=== PATIENT | female | born 1970 | race Caucasian/White ===

== ENCOUNTER → 2017-02-04 | Outpatient (CLI) | payer OTHER ==
--- NOTE | 2017-02-04 15:34 | Diagnostic Imaging Report ---
EXAMINATION: Right foot. INDICATION: Foot pain. FINDINGS: Three views were obtained. There is no fracture, dislocation, or acute bony abnormality evident. On the oblique view, there is a linear lucency extending longitudinally through the shaft of the first metatarsal. This cannot be identified on the other two projections and consequently is unlikely to be related to a fracture. The soft tissues are unremarkable. There is no radiopaque foreign body identified. IMPRESSION: 1. There is no evidence for an acute bony abnormality. The linear lucency extending longitudinally through the first metatarsal is unlikely to be related to a nondisplaced fracture. 2. If clinical concern regarding an acute abnormality persists, then MRI should be considered for further study. Dictated by: Dictated on workstation # [id number]
== END ==
LOC: RAD 12:06
PROVIDERS: ATTEND Family Medicine
DX: M79.671 Pain in right foot (principal)
CPT/HCPCS: 73630

== ENCOUNTER → 2018-05-14 | Outpatient (CLI) | payer OTHER ==
--- NOTE | 2018-05-14 15:31 | Diagnostic Imaging Report ---
PROCEDURE: MRI right joint lower extremity without contrast. TECHNIQUE: Multiplanar, multisequence MR imaging of the right knee was performed without contrast. COMPARISON: None available. INDICATION: Knee pain after injury playing volleyball. FINDINGS: MENISCI Medial meniscus: Normal. Lateral meniscus: Normal. LIGAMENTS ACL: Intact. PCL: Intact. MCL: The MCL has abnormal increased thickness along its proximal aspect with increased signal. Additionally, there is edema on both sides. These findings are indicative of an intermediate grade sprain with partial-thickness tearing. The distal insertion of the MCL appears intact. LCL: The lateral collateral ligamentous complex is intact. EXTENSOR MECHANISM The extensor mechanism is intact. CARTILAGE Medial compartment: Medial compartment articular cartilage is well preserved without focal high-grade chondromalacia. Lateral compartment: The lateral compartment articular cartilage is preserved without high-grade chondromalacia. Patellofemoral compartment: Full-thickness articular cartilage loss in the central aspect of the patella at the patellar apex. Remainder of the patella and trochlear cartilage is preserved. BONE No fracture, stress fracture or osteonecrosis. SOFT TISSUE No knee effusion or Peck's cyst. IMPRESSION: 1. Intermediate grade sprain/partial-thickness tear of the proximal MCL. Distal MCL fibers are intact. 2. No ACL tear. 3. No meniscal tear. 4. No fracture or bone contusion. Dictated by: Dictated on workstation # [id number]
== END ==
LOC: RAD 13:17
PROVIDERS: ATTEND Nurse Practitioner Family
DX: S83.411A Sprain of medial collateral ligament of right knee, initial encounter (principal); X58.XXXA Exposure to other specified factors, initial encounter; Y93.68 Activity, volleyball (beach) (court)
CPT/HCPCS: 73721

== ENCOUNTER 2020-06-30 13:29 | Emergency (ER) | payer OTHER ==
[~2020-06-30] VITALS: Ht 170 cm; Wt 86.0 kg
[2020-06-30 14:03] LABS: BASOPHILS # (AUTO) 0.1 10^3/uL (0.0-0.1); BASOPHILS % (AUTO) 1 % (0-10); EOSINOPHILS # (AUTO) 0.4 10^3/uL (0.0-0.3); EOSINOPHILS % (AUTO) 4 % (0-10); HEMATOCRIT 34 % (35-52); HEMOGLOBIN 11.3 G/DL (11.5-16.0); LYMPHOCYTES # (AUTO) 2.5 X 10^3 (1.0-4.0); LYMPHOCYTES % (AUTO) 27 % (12-44); MEAN CORPUSCULAR HEMOGLOBIN 19 PG (25-34); MEAN CORPUSCULAR HGB CONC 33 G/DL (32-36); MEAN CORPUSCULAR VOLUME 58 FL (80-99); MEAN PLATELET VOLUME 11.4 FL (7.4-10.4); MONOCYTES # (AUTO) 0.5 X 10^3 (0.0-1.0); MONOCYTES % (AUTO) 6 % (0-12); NEUTROPHILS # (AUTO) 5.8 X 10^3 (1.8-7.8); NEUTROPHILS % (AUTO) 62 % (42-75); PLATELET COUNT 302 10^3/uL (130-400); RED CELL DISTRIBUTION WIDTH 16.9 % (10.0-14.5); WHITE BLOOD COUNT 9.3 10^3/uL (4.3-11.0)
[2020-06-30 14:19] LABS: ALBUMIN 4.3 GM/DL (3.2-4.5); CHLORIDE 105 MMOL/L (98-107); POTASSIUM 3.9 MMOL/L (3.6-5.0); SODIUM 137 MMOL/L (135-145)
[2020-06-30 14:20] LABS: CALCIUM 8.8 MG/DL (8.5-10.1)
--- NOTE | 2020-06-30 14:20 | ED GU-Female ---
General Chief Complaint: Female Reproductive Stated Complaint: VAGINAL BLEEDING Nursing Triage Note: PT AMBULATED IN TO ER ROOM 7 WITH CHIEF COMPLAINT OF VAGINAL BLEEDING ONSET LAST NIGHT. PT STATES SHE HAS BEEN USING 1 PAD AND 1 TAMPON EVERY 1 1/2 HOURS WITH INTERMITTENT CLOTS THAT ARE PALM SIZE. Nursing Sepsis Screen: No Definite Risk Source: patient Exam Limitations: no limitations History of Present Illness Date Seen by Provider: Jun 30, 2020 Time Seen by Provider: 14:18 Initial Comments To ER with reports of vaginal bleeding that began 2-3 days ago. Last night it became heavier to the tune of about 1 pad and tampon every 1.5 hours. Has persisted into today. She does have an IUD that was placed a few years ago by Dr. REDDY. Denies fevers or chills. Timing/Duration: constant Severity/Quality: moderate Radiation: none Activities at Onset: none Prior Genitourinary Problems: none Associated Symptoms: denies symptoms Allergies and Home Medications Home Medications Medroxyprogesterone Acetate 10 Mg Tablet, 10 MG PO DAILY Prescribed by: ELVIN DE ANDA on 06/30/20 5371 Patient Home Medication List Home Medication List Reviewed: Yes Review of Systems Review of Systems Constitutional: see HPI EENTM: see HPI Respiratory: no symptoms reported Cardiovascular: no symptoms reported Genitourinary: see HPI Musculoskeletal: no symptoms reported Skin: no symptoms reported Psychiatric/Neurological: No Symptoms Reported Endocrine: No Symptoms Reported Past Lpfneuw-Xxsshh-Ewzxss Hx Patient Social History Alcohol Use: Occasionally Uses Recreational Drug Use: No Smoking Status: Current Someday Smoker Type Used: Cigars 2nd Hand Smoke Exposure: No Recent Foreign Travel: No Contact w/Someone Who Travel: No Recent Infectious Disease Expo: No Recent Hopitalizations: No Physical Abuse: No Sexual Abuse: No Mistreated: No Fear: No Seasonal Allergies Seasonal Allergies: Yes Past Medical History Surgeries: Yes (DENTAL, LEFT KNEE ARTHOSCOPY) Tonsillectomy Respiratory: No Cardiac: No Neurological: No : No Genitourinary: No Gastrointestinal: No Musculoskeletal: No Endocrine: No HEENT: No Cancer: No Psychosocial: No Integumentary: No Blood Disorders: No Adverse Reaction/Blood Tranf: No Physical Exam Vital Signs Vital Signs - First Documented 06/30/20 13:57 Temp 36.9 Pulse 87 Resp 18 B/P (MAP) 137/88 (104) Pulse Ox 97 O2 Delivery Room Air Capillary Refill : Less Than 3 Seconds Height, Weight, BMI Height: '" Weight: lbs. oz. kg; 29.00 BMI Method: General Appearance: WD/WN, no apparent distress HEENT: PERRL/EOMI, normal ENT inspection Respiratory: no respiratory distress, no accessory muscle use Gastrointestinal: normal bowel sounds, non tender, soft Extremities: normal range of motion Neurologic/Psychiatric: alert, normal mood/affect, oriented x 3 Skin: normal color, warm/dry Progress/Results/Core Measures Suspected Sepsis Recent Fever Within 48 Hours: No Infection Criteria Present: None New/Unexplained Altered Menta: No Sepsis Screen: No Definite Risk SIRS Temperature: Pulse: 87 Respiratory Rate: 18 Laboratory Tests 06/30/20 13:53: White Blood Count 9.3 Blood Pressure 137 /88 Mean: 104 Laboratory Tests 06/30/20 13:53: Creatinine 0.76, INR Comment 1.0, Platelet Count 302, Total Bilirubin 0.5 Results/Orders Lab Results Laboratory Tests Test 06/30/20 13:53 Range/Units White Blood Count 9.3 4.3-11.0 10^3/uL Red Blood Count 5.83 4.35-5.85 10^6/uL Hemoglobin 11.3 L 11.5-16.0 G/DL Hematocrit 34 L 35-52 % Mean Corpuscular Volume 58 L 80-99 FL Mean Corpuscular Hemoglobin 19 L 25-34 PG Mean Corpuscular Hemoglobin Concent 33 32-36 G/DL Red Cell Distribution Width 16.9 H 10.0-14.5 % Platelet Count 302 130-400 10^3/uL Mean Platelet Volume 11.4 H 7.4-10.4 FL Neutrophils (%) (Auto) 62 42-75 % Lymphocytes (%) (Auto) 27 12-44 % Monocytes (%) (Auto) 6 0-12 % Eosinophils (%) (Auto) 4 0-10 % Basophils (%) (Auto) 1 0-10 % Neutrophils # (Auto) 5.8 1.8-7.8 X 10^3 Lymphocytes # (Auto) 2.5 1.0-4.0 X 10^3 Monocytes # (Auto) 0.5 0.0-1.0 X 10^3 Eosinophils # (Auto) 0.4 H 0.0-0.3 10^3/uL Basophils # (Auto) 0.1 0.0-0.1 10^3/uL Prothrombin Time 13.3 12.2-14.7 SEC INR Comment 1.0 0.8-1.4 Sodium Level 137 135-145 MMOL/L Potassium Level 3.9 3.6-5.0 MMOL/L Chloride Level 105 98-107 MMOL/L Carbon Dioxide Level 22 21-32 MMOL/L Anion Gap 10 5-14 MMOL/L Blood Urea Nitrogen 17 7-18 MG/DL Creatinine 0.76 0.60-1.30 MG/DL Estimat Glomerular Filtration Rate > 60 BUN/Creatinine Ratio 22 Glucose Level 116 H 70-105 MG/DL Calcium Level 8.8 8.5-10.1 MG/DL Corrected Calcium 8.6 8.5-10.1 MG/DL Total Bilirubin 0.5 0.1-1.0 MG/DL Aspartate Amino Transf (AST/SGOT) 17 5-34 U/L Alanine Aminotransferase (ALT/SGPT) 21 0-55 U/L Alkaline Phosphatase 59 40-136 U/L Total Protein 7.2 6.4-8.2 GM/DL Albumin 4.3 3.2-4.5 GM/DL Serum Test, Qualitative NEGATIVE NEGATIVE My Orders Orders - ELVIN DE ANDA APRN Hcg,Qualitative Serum (06/30/20 13:45) Cbc With Automated Diff (06/30/20 13:45) Comprehensive Metabolic Panel (06/30/20 13:45) Protime With Inr (06/30/20 13:45) Us Non Ob Pelvis Comp/Transvag (06/30/20 13:45) Vital Signs/I&O 06/30/20 13:57 Temp 36.9 Pulse 87 Resp 18 B/P (MAP) 137/88 (104) Pulse Ox 97 O2 Delivery Room Air Capillary Refill : Less Than 3 Seconds Blood Pressure Mean: 104 Diagnostic Imaging Diagonstic Imaging: Xray, Ultrasound Comments NAME: SORAYA TAYLORLEE Marcela SHARMA REC#: [id number] PT STATUS: REG ER : 1970 PHYSICIAN: ELVIN DE ANDA APRN ADMIT DATE: 06/30/20/ER Signed Date of Exam:06/30/20 US NON OB PELVIS COMP/TRANSVAG PROCEDURE: US Non-ob pelvis comp/trans. TECHNIQUE: Multiple realtime grayscale images were obtained of the pelvis in various projections endovaginally. Transabdominal imaging was also performed. INDICATION: Vaginal bleeding. FINDINGS: Uterus is enlarged measuring 12.5 x 8.2 x 11.5 cm. There are multiple uterine fibroids present. Large midline fibroid measures 6.8 x 6.0 x 4.0 cm. Fibroid in the left uterus measures 5.3 x 4.8 x 4.2 cm. Endometrium is 11 mm in thickness. Right ovary measures 3.1 x 1.6 x 2.0 cm. Left ovary measures 3.8 x 2.5 x 2.0 cm. Small cyst in the left ovary is noted measuring approximately 2 cm in size. No free fluid is identified. IMPRESSION: 1. Enlarged fibroid uterus. 2. 2 cm left ovarian cyst. Dictated by: Dictated on workstation # [id number] Dict: 06/30/20 1547 Trans: 06/30/20 1554 [id number] Interpreted by: ALANIS HADDAD MD Electronically signed by: ALANIS HADDAD MD 06/30/20 1554 Departure Impression Primary Impression: Uterine fibroid Additional Impression: Vaginal bleeding Disposition: HOME, SELF-CARE Condition: Stable Departure-Patient Inst. Decision time for Depature: 15:54 Referrals: EMERALD REDDY JACQUELINE S DO (PCP/Family) Primary Care Physician Patient Instructions: Uterine Fibroids Add. Discharge Instructions: 1. Follow-up with Dr. REDDY. Call Friday to make an appointment to be seen in the meantime take the medroxyprogesterone as directed. This will slow the bleeding. Return to ER for any worsening or other concerns. All discharge instructions reviewed with patient and/or family. Voiced understanding. Scripts Medroxyprogesterone Acetate (Medroxyprogesterone Acetate) 10 Mg Tablet 10 MG PO DAILY, #14 TAB Prov: ELVIN DE ANDA APRN 06/30/20 Copy Copies To 1: EMERALD REDDY PETER J APRN Jun 30, 2020 14:20
[2020-06-30 14:21] LABS: GLUCOSE 116 MG/DL (70-105)
[2020-06-30 14:22] LABS: PROTHROMBIN TIME PATIENT 13.3 SEC (12.2-14.7); TOTAL PROTEIN 7.2 GM/DL (6.4-8.2)
[2020-06-30 14:23] LABS: CARBON DIOXIDE 22 MMOL/L (21-32)
[2020-06-30 14:24] LABS: BILIRUBIN,TOTAL 0.5 MG/DL (0.1-1.0)
[2020-06-30 14:25] LABS: ALKALINE PHOSPHATASE 59 U/L (40-136); CREATININE SERUM 0.76 MG/DL (0.60-1.30); GFR ESTIMATED > 60
[2020-06-30 14:26] LABS: BUN/CREATININE RATIO 22
[2020-06-30 14:28] LABS: ALANINE AMINOTRANSFERASE 21 U/L (0-55)
--- NOTE | 2020-06-30 15:09 | NUR ---
pt back in room from US, VS assessed and stable, pt denies any needs or c/o at this time, pt shows no s/s of distress, will continue to monitor
--- NOTE | 2020-06-30 15:52 | Diagnostic Imaging Report ---
PROCEDURE: US Non-ob pelvis comp/trans. TECHNIQUE: Multiple realtime grayscale images were obtained of the pelvis in various projections endovaginally. Transabdominal imaging was also performed. INDICATION: Vaginal bleeding. FINDINGS: Uterus is enlarged measuring 12.5 x 8.2 x 11.5 cm. There are multiple uterine fibroids present. Large midline fibroid measures 6.8 x 6.0 x 4.0 cm. Fibroid in the left uterus measures 5.3 x 4.8 x 4.2 cm. Endometrium is 11 mm in thickness. Right ovary measures 3.1 x 1.6 x 2.0 cm. Left ovary measures 3.8 x 2.5 x 2.0 cm. Small cyst in the left ovary is noted measuring approximately 2 cm in size. No free fluid is identified. IMPRESSION: 1. Enlarged fibroid uterus. 2. 2 cm left ovarian cyst. Dictated by: Dictated on workstation # [id number]
[2020-06-30] MEDS ORDERED: MEDR10TA9 PO (15:55)
[2020-06-30] MEDS ORDERED: medroxyPROGESTERone 10 MG (PROVERA) TAB PO ONE (16:00)
[2020-06-30 16:09] VITALS: BP 128/72
== END 2020-06-30 16:09 | disposition home or self-care (01) ==
LOC: EDUNIT# 13:29 → ER 13:30
DX: D25.9 Leiomyoma of uterus, unspecified (principal); F17.290 Nicotine dependence, other tobacco product, uncomplicated
CPT/HCPCS: 36415; 76830; 76856; 80053; 84703; 85025; 85610

== ENCOUNTER → 2020-09-25 | Outpatient (CLI) | payer OTHER ==
[~2020-09-25] MED LIST: MEDR10TA9 PO
--- NOTE | 2020-09-25 20:23 | Diagnostic Imaging Report ---
PROCEDURE: Pelvic complete, transabdominal and transvaginal sonogram. Limited pelvic doppler. TECHNIQUE: Multiple real-time grayscale images were obtained of the pelvis in various projections transabdominally and transvaginally. Limited pelvic duplex images were obtained. HISTORY: Uterine fibroids. COMPARISON: Pelvic ultrasound 06/22/2020. FINDINGS: Uterus: The uterus is anteverted and measures 11.6 x 8.3 x 10.0. cm. There is a 6.2 x 4.2 x 3.7 cm uterine fibroid along the left uterus. There is a 5.5 x 5.4 x 4.5 cm uterine fibroid along the midline. Endometrium: The endometrium is obscured by the uterine fibroids. Adnexa: The ovaries are not well visualized secondary to overlying bowel gas. Other: There is no free fluid within the pelvis. IMPRESSION: 1. A 6.2 cm uterine fibroid, mildly increased in size from prior exam. 2. A 5.5 cm uterine fibroid which is decreased in size from prior exam. Dictated by: Dictated on workstation # [id number]
== END ==
LOC: RAD 15:00
PROVIDERS: ATTEND Obstetrics & Gynecology
DX: D25.9 Leiomyoma of uterus, unspecified (principal)
CPT/HCPCS: 76830; 76856

== ENCOUNTER → 2020-10-02 | Outpatient (CLI) | payer OTHER ==
--- NOTE | 2020-10-02 18:24 | Diagnostic Imaging Report ---
EXAM: Left foot radiograph EXAM DATE: 10/02/2020 COMPARISON: None. HISTORY: Palpable abnormality dorsal surface of the left foot. TECHNIQUE: 3 views of the left foot. FINDINGS: No acute fracture, dislocation, or destructive osseous process. There are mild degenerative changes of the tarsometatarsal joints. Joint spaces are preserved. Soft tissues are normal. No focal abnormality along the 4th metatarsal is seen on this radiograph to correspond to the patient's palpable abnormality. IMPRESSION: No acute osseous abnormality of the left foot. No focal abnormality corresponding to the patient's palpable symptoms. Dictated by: Dictated on workstation # [id number]
== END ==
LOC: RAD 16:54
PROVIDERS: ATTEND Family Medicine
DX: M79.672 Pain in left foot (principal); M79.89 Other specified soft tissue disorders; Z20.828 Contact with and (suspected) exposure to other viral communicable diseases
CPT/HCPCS: 73630

== ENCOUNTER 2020-10-26 05:33 | Outpatient (RCR) | payer OTHER ==
[~2020-10-26] VITALS: Ht 170.2 cm; Wt 84.5 kg
[~2020-10-26 05:33] MED LIST changes: +CETI10TA49 PO; +ELAG200T PO
== END 2020-10-26 09:15 | disposition home or self-care (01) ==
LOC: PREOP 05:33
PROVIDERS: ATTEND Obstetrics & Gynecology
DX: Z01.812 Encounter for preprocedural laboratory examination (principal); D25.9 Leiomyoma of uterus, unspecified; Z20.828 Contact with and (suspected) exposure to other viral communicable diseases
CPT/HCPCS: 87635

== ENCOUNTER 2020-10-30 06:04 | Day surgery (SDC) | payer OTHER ==
[~2020-10-30] VITALS: Ht 170.2 cm; Wt 84.5 kg
[2020-10-30] VITALS (20 sets, daily range): BP systolic 108–133; BP diastolic 56–84
[2020-10-30] MEDS ORDERED: ONDANSETRON 4 MG/2 ML (SDV) Z0FRAN ONE (06:45)
[2020-10-30] MEDS ORDERED: proPOfol 200 MG/20 ML (DIPRIVAN) VIAL IV ONE (06:45)
[2020-10-30] MEDS ORDERED: SEVOFLURANE (ULTANE) 15 ML INHAL SOLN ONE ×2 (06:45→09:38)
[2020-10-30] MEDS ORDERED: ROCURONIUM 10 MG/ML 5 ML SYRINGE IV ONE (06:45)
[2020-10-30] MEDS ORDERED: MIDAZOLAM 2 MG/2 ML (VERSED) VIAL ONE (06:46)
[2020-10-30] MEDS ORDERED: fentaNYL INJECTION 100 MCG/2 ML AMP ONE (06:46)
--- NOTE | 2020-10-30 06:56 | Progress Note-Pre Operative ---
Pre-Operative Progress Note H&P Reviewed The H&P was reviewed, patient examined and no changes noted. Date Seen by Provider: Oct 30, 2020 Time Seen by Provider: 06:55 Date H&P Reviewed: Oct 30, 2020 Time H&P Reviewed: 06:55 Pre-Operative Diagnosis: Fibroid uterus, AUB, Pelvic pressure EMERALD REDDY DO Oct 30, 2020 06:56
[2020-10-30] MEDS ORDERED: LIDOCAINE/EPI 1%-1:100,000 (XYLOCAINE) 50 ML ONE (06:58)
[2020-10-30] MEDS ORDERED: DOCUSATE SODIUM 100 MG (COLACE) CAP PO PRN (07:00)
[2020-10-30] MEDS ORDERED: CHLORASEPTIC LOZENGE MM PRN (07:00)
[2020-10-30] MEDS ORDERED: SIMETHICONE 80 MG (MYLICON) CHEW PO PRN (07:00)
[2020-10-30] MEDS ORDERED: ZOLPIDEM 5 MG (AMBIEN) TAB PO PRN (07:00)
[2020-10-30] MEDS ORDERED: ONDANSETRON 4 MG/2 ML (SDV) Z0FRAN IV PRN (07:00)
[2020-10-30] MEDS ORDERED: KETOROLAC 30 MG/ML VIAL IV PRN (07:00)
[2020-10-30] MEDS ORDERED: ANTACID SUSP 30 ML UDC (MYLANTA) PO PRN (07:00)
[2020-10-30] MEDS ORDERED: ceFAZolin 2 GM IV Premixed 50 ML ONE (07:01)
[2020-10-30] MEDS ORDERED: metroNIDAZOLE 500MG/100ML IVPB 100 ML ONE (07:01)
--- NOTE | 2020-10-30 07:06 | Discharge Inst-Women's Service ---
Discharge Inst-Women's Serv Depart Medication/Instructions New, Converted or Re-Newed RX: RX on Chart Final Diagnosis PO RATLH with salpingectomy Problems Reviewed?: Yes Consults/Follow Up Additional Follow Up: Yes Orders/Referrals Dr. Jeter in 7-10 days and in 8 weeks Activity Activity: Activity as Tolerated Driving Instructions: No Driving for 1 Week NO SMOKING: NO SMOKING Nothing Inside Vagina: No Douching, No Ryan, No Tampons Diet Discharge Diet: No Restrictions Symptoms to Report to : Bleeding Excessive, Pain Increased, Fever Over 101 Degrees F, Vaginal Bleeding Increase, Questions/Concerns For Any Problems or Questions: Contact Your Physician Skin/Wound Care Infection Signs and Symptoms: Increased Redness, Foul Odor of Wound, Increased Drainage, Skin Itchy or Has a Rash, Increased Swelling, Temperature Above 101 F Operative Area Clean and Dry: Keep Incision Clean/Dry Stitches/Andres/Dermabond: Dermabond, Care of Stitches Bathing Instructions: EMERALD Young DO Oct 30, 2020 07:06
[2020-10-30 07:08] LABS: HEMOGLOBIN 11.2 g/dL (11.5-16.0); MEAN PLATELET VOLUME 11.2 fL (9.0-12.2)
[2020-10-30] MEDS ORDERED: HYDR-34 PO (07:08)
[2020-10-30] MEDS ORDERED: SIME80TA16 PO (07:08)
[2020-10-30] MEDS ORDERED: NAPR250T6 PO (07:08)
[2020-10-30] MEDS ORDERED: DCS100C PO (07:08)
[2020-10-30 07:10] LABS: BASOPHILS # (AUTO) 0.1 10^3/uL (0.0-0.1); BASOPHILS % (AUTO) 1 % (0-10); EOSINOPHILS # (AUTO) 0.3 10^3/uL (0.0-0.3); EOSINOPHILS % (AUTO) 4 % (0-10); HEMATOCRIT 36 % (35-52); LYMPHOCYTES # (AUTO) 1.8 10^3/uL (1.0-4.0); LYMPHOCYTES % (AUTO) 29 % (12-44); MEAN CORPUSCULAR HEMOGLOBIN 19 pg (25-34); MEAN CORPUSCULAR HGB CONC 31 g/dL (32-36); MEAN CORPUSCULAR VOLUME 61 fL (80-99); MONOCYTES # (AUTO) 0.4 10^3/uL (0.0-1.0); MONOCYTES % (AUTO) 7 % (0-12); NEUTROPHILS # (AUTO) 3.5 10^3/uL (1.8-7.8); NEUTROPHILS % (AUTO) 58 % (42-75); PLATELET COUNT 237 10^3/uL (130-400)
[2020-10-30] MEDS ORDERED: ceFAZolin 2 GM IV Premixed 50 ML IV ONE (07:30)
[2020-10-30] MEDS ORDERED: LACTATED RINGERS 1,000 ML IV PRN (07:30)
[2020-10-30] MEDS ORDERED: metroNIDAZOLE 500MG/100ML IVPB 100 ML IV ONE (07:30)
[2020-10-30] MEDS ORDERED: HYDROmorphone 2 MG/ML VIAL (DILAUDID) ONE ×2 (07:51→09:54)
[2020-10-30] MEDS: LACTATED RINGERS 1,000 ML IV SCH ×2 (08:15→11:25)
[2020-10-30] MEDS ORDERED: GLYCOPYRROLATE 0.2 MG/ML (ROBINUL) 2 ML VIAL ONE (08:24)
[2020-10-30] MEDS ORDERED: NEOSTIGMINE 3 MG/3 ML VIAL ONE (08:24)
[2020-10-30] MEDS ORDERED: NAPROXEN 250 MG (NAPROSYN) TABLET PO SCH (09:00)
[2020-10-30] MEDS ORDERED: ONDANSETRON 4 MG/2 ML (SDV) Z0FRAN IVP PRN (09:45)
[2020-10-30] MEDS ORDERED: HYDROmorphone 2 MG/ML VIAL (DILAUDID) IV ONE (09:45)
--- NOTE | 2020-10-30 10:30 | NUR ---
CECILE CLAUDIA admitted to room 3306, with an admitting diagnosis of RATLH WITH BS, on 10/30/20 from [facility] via , accompanied by .CECILE TAYLOR introduced to surroundings, call light, bed controls, phone, TV, temperature control, lights, meal times, smoking policy, visitor policy, side rail policy, bathrooms and showers. Patient Rights given to patient in the handbook.CECILE TAYLOR verbalizes understanding that [facility] is not responsible for the loss or damage to any personal effects or valuables that are kept in the patients posession during their hospitalization. The following Patient Care Plans were discussed with the : Discharge Planning, ,, and . CECILE TAYLOR verbalizes understanding of Interdisciplinary Patient Education. Patient and/or family were informed about the Rapid Response Team and its purpose.
--- NOTE | 2020-10-30 10:35 | NUR ---
INITIAL ASSESSMENT COMPLETED, SEE INTERVENTIONS FOR DETAILED ASSESSMENTS.
[2020-10-30] MEDS ORDERED: HYDROcodone/APAP 7.5 MG/325 MG (LORTAB, LORCET PLUS) TABLET PO ONE (11:27)
[2020-10-30] MEDS: HYDROcodone/APAP 7.5 MG/325 MG (LORTAB, LORCET PLUS) TABLET PO PRN ×3 (11:34→14:00)
--- NOTE | 2020-10-30 11:36 | NUR ---
pt c/o pain, requesting pain meds, 1 lorcet given po for pain due to pt still being drowsy from surgery. Vss, o2 on by nc at 2 liters, rn will monitor closely.
--- NOTE | 2020-10-30 13:20 | NUR ---
RENDON CATHETER REMOVED, PERICARE, PT REPORTING NEED TO HAVE BM UP TO BR, RN AT SIDE.
--- NOTE | 2020-10-30 14:06 | NUR ---
PT RESTING BACK IN BED, VISITING WITH RN REQUESTS MEDS FOR PAIN AND GAS. MEDS GIVEN, PT REQUESTS TO HAVE O2 PLACED BACK ON, REPORTS "I CANT TAKE DEEP BREATHS", VS TAKEN, SPO2 98%. VSS. WILL MONITOR.
--- NOTE | 2020-10-30 19:15 | NUR ---
up to void. 200cc. no difficulty. pt states she wants to stay the night and go home in the am. Dr Jeter notified
--- NOTE | 2020-10-30 21:12 | OPERATIVE REPORT ---
DATE OF SERVICE: PREOPERATIVE DIAGNOSES: 1. A 50-year-old female with multiple fibroid uterus. 2. Abnormal uterine bleeding. 3. Pelvic pressure and discomfort. POSTOPERATIVE DIAGNOSES: 1. A 50-year-old female with multiple fibroid uterus. 2. Abnormal uterine bleeding. 3. Pelvic pressure and discomfort. PROCEDURE: Robotic-assisted total laparoscopic hysterectomy with bilateral salpingectomy with total weight of 450 grams. SURGEON: Federico Jeter DO CASINO CASHIER: Marnie Jenkins DNP, who was necessary for manipulation and retraction throughout the procedure. ANESTHESIA: General endotracheal. ESTIMATED BLOOD LOSS: Minimal. URINE OUTPUT: 75 mL clear at the end of the procedure. FLUIDS: 1500 mL lactated Ringer's solution. FINDINGS: A bulky and enlarged uterus with multiple subserosal fibroids evident on gross inspection as well as large fibroid involving the broad ligament and distorting the broad ligament on the left side. SPECIMEN SENT: Uterus, cervix, bilateral fallopian tubes. INDICATIONS FOR PROCEDURE: This 50-year-old female was a consultation from Dr. Burns for multiple fibroid uterus. She had been evaluated in the past and was started on a GnRH antagonist to help minimize the size of the fibroids. After approximately 3 to 6 months of decreased bleeding, spotting and repeat ultrasound showing a small decrease in the size of the fibroids, we decided to proceed with removing the uterus as this is a definitive therapy for these fibroids. Risks of the procedure were discussed with the patient in detail including risk of bleeding, infection, damage to surrounding structures including, but not limited to bowel, bladder, ureter, kidneys, possible need for reoperation, risk from anesthesia, possible need for blood transfusion and even . Everything was discussed with the patient in detail, consent was obtained in the preoperative area with her present. The patient was taken to the operating room. Once in the operating room, general anesthesia was found to be adequate, placed in dorsal lithotomy position, prepped and draped in normal sterile fashion where a timeout was performed. A Lozano catheter was placed using sterile technique. A weighted speculum inserted to the patient's vagina. Right angle retractor was used to visualize the cervix, which was grasped at 12 o'clock position using a long Allis clamp. I then placed an 0 Vicryl suture through the anterior lip of the cervix and removed the Allis clamp. The suture was then used as my retraction point on the cervix. I then gently sounded the uterine cavity, depth was found to be 14 cm. I selected a 12 cm Lauryn uterine manipulator tip and a 4 cm colpotomy ring. I advanced the manipulator tip into the uterus deploying the balloon and the colpotomy ring around the vaginal fornix, after which I removed all the other instruments from the patient's vagina. I was able to appreciate bimanual manipulation on examination. I then performed a change of gloves and took my attention to the abdomen at approximately 2 cm superiorly to the umbilicus. I infiltrated this area using 0.25% Marcaine to make an 8 mm incision with a knife and directed Veress needle to the incision until intraperitoneal placement was confirmed using saline drop test. I then proceeded with insufflation using CO2 gas and opening pressure of 1 mmHg was noted. I proceeded to max pressure of 15 mmHg, at which point I removed the Veress needle and introduced an 8 mm blunt laparoscopic da Wendy camera trocar. Once this was in place, I was able to confirm intraperitoneal placement using the da Wendy laparoscope. There was no evidence upon my entry using the laparoscope to identify the peritoneal cavity. A brief scan of the upper abdominal anatomy appears to be grossly normal. I then had the patient placed in steep Trendelenburg and placed two lateral trocars. These were both 8 mm trocars similar to the supraumbilical trocar. They were approximately 10 cm lateral to my suprapubic trocar. The skin was infiltrated using 0.25% Marcaine. Incisions were made with a knife and the trocars were both placed under direct visualization of laparoscope. Once both these trocars were placed, I have adequate access to proceed with the case robotically. I bring in the da Wendy robot and docked in appropriate fashion, placing the da Wendy vessel sealer in the left hand and monopolar jose a in the right hand. I performed the following dissection bilaterally starting at the uteroovarian ligament, I bipolar cauterized and transected using the vessel sealer. I then created a window in the mesosalpinx and took this laterally amputating the fallopian tube from its surrounding blood supply. I then was able to identify the round ligament bilaterally, which I bipolar cauterized and transected using the vessel sealer. I then opened up the broad ligament anteriorly and posteriorly around subserosal fibroids and dissected them away from the lateral pelvic sidewall. I took my peritoneal dissection plane down to the anterior vaginal fornix, so I was able to identify the anterior vaginal cuff of the LAURYN uterine manipulator. In a similar fashion, I took a posterior leaflet reflection around to the posterior vaginal cuff. This allowed me to skeletonize the uterine vessels laterally, which I then bipolar cauterized and transected using the vessel sealer. I then created a colpotomy at 6 o'clock position using the monopolar jose a and took this circumferentially around the vaginal fornix amputating the cervix away from the vagina. The entire specimen was then removed intact through the vagina. I then proceeded with closing the lateral vaginal apices of the vaginal cuff using 2-0 Vicryl suture in a [id number] fashion colposuspending the uterosacral ligaments. I then closed the remainder of the vaginal cuff using 2-0 V-Loc in a running fashion, after which there was no active bleeding noted from any of my dissection planes. I then undocked the da Wendy robot and proceeded with the remainder of the case laparoscopically. I then copiously irrigated the pelvis using normal saline. There was no active bleeding noted from any of my dissection planes. I placed FloSeal hemostatic agent over all my planes of dissection. I had the patient taken out of steep Trendelenburg where I removed the lateral trocars under direct visualization and laparoscope. The supraumbilical trocar was left in place to release insufflation and to introduce 10 mL of 0.25% Marcaine into the peritoneal cavity for postoperative pain management. I then removed this trocar as well. The skin reapproximated using 4-0 Monocryl in interrupted subcuticular stitches. Dermabond was applied to the incisions and Band-Aids were placed over the incisions as well. Upon further inspection of the vagina, there was a very small mucosal tear of the mucocutaneous junction of the vagina that was repaired using 3-0 Vicryl suture in a [id number] fashion, after which it was noted to be hemostatic. Lozano catheter was left in place. All other instruments were removed. Lap and sponge counts were correct at the end of procedure. Instrument counts correct as well. Two grams of Ancef, 500 mg of Flagyl was given probably for infection prophylaxis. Job ID: [id number] DocumentID: [id number] Dictated Date: 10/30/2020 10:45:37 Mechanical Technologist Date: 10/30/2020 21:10:50 Dictated By: FEDERICO JETER DO
[2020-10-31] MEDS: HYDROcodone/APAP 7.5 MG/325 MG (LORTAB, LORCET PLUS) TABLET PO PRN ×2 (02:19→06:17)
[2020-10-31 02:52] VITALS: BP 115/57
--- NOTE | 2020-10-31 07:58 | NUR ---
DR. REDDY AT PT'S BEDSIDE.
[2020-10-31 08:03] VITALS: BP 109/55
--- NOTE | 2020-10-31 09:17 | NUR ---
DISCHARGE PAPERS PROVIDED AND REVIEWED WITH PT, PT VERBALIZES UNDERSTANDING. QUESTIONS ANSWERED. PAPER SIGNED. FOLLOW UP APPOINTMENT CARDS AND PRESCRIPTIONS ALSO PROVIDED AT THIS TIME AND PLACED INTO DISCHARGE FOLDER.
--- NOTE | 2020-10-31 09:45 | NUR ---
PT DISCHARGED FROM [facility]-306 TO PERSONAL AUTO VIA W/C IN STABLE CONDITION ACC BY Sven HANLEY, PCT.
--- NOTE | 2020-10-31 14:38 | Anesthesia-General Post-Op ---
General Patient Condition Mental Status/LOC: Same as Preop Cardiovascular: Satisfactory Nausea/Vomiting: Absent Respiratory: Satisfactory Pain: Controlled Complications: Absent Post Op Complications Complications None Follow Up Care/Instructions Patient Instructions None needed. Anesthesia/Patient Condition Patient Condition Patient is already discharged to home but she was doing well prior to discharge per nursing staff; no complaints, stable vital signs, no apparent adverse anesthesia problems. MIRNA MEJIAS DO Oct 31, 2020 14:38
== END 2020-10-31 09:45 | disposition home or self-care (01) ==
LOC: SDC 06:04 → WS 10:30 → SDC 10-31 09:45
PROVIDERS: ATTEND Obstetrics & Gynecology
DX: D25.1 Intramural leiomyoma of uterus (principal); D25.0 Submucous leiomyoma of uterus; D25.2 Subserosal leiomyoma of uterus; N93.9 Abnormal uterine and vaginal bleeding, unspecified; N80.0 Endometriosis of uterus; D26.1 Other benign neoplasm of corpus uteri; N83.8 Other noninflammatory disorders of ovary, fallopian tube and broad ligament; J45.909 Unspecified asthma, uncomplicated; G47.33 Obstructive sleep apnea (adult) (pediatric); E66.9 Obesity, unspecified; Z68.29 Body mass index [BMI] 29.0-29.9, adult; Z79.899 Other long term (current) drug therapy; Z88.5 Allergy status to narcotic agent
CPT/HCPCS: 36415; 84703; 85025; 86850; 86900; 86901; 87081

== ENCOUNTER → 2021-01-02 | Outpatient (CLI) | payer OTHER ==
[~2021-01-02] MED LIST changes: +DCS100C PO; +HYDR-34 PO; +NAPR-1088 PO; +SIME80TA16 PO
--- NOTE | 2021-01-02 16:18 | Diagnostic Imaging Report ---
INDICATION: Routine screening. COMPARISON: 06/07/2019 and 12/19/2014. TECHNIQUE: 2D and 3D bilateral screening mammography was performed with CAD. FINDINGS: Both breasts are heterogeneously dense, limiting the sensitivity of mammography. Calcifications in both breasts appear to be fairly stable. No dominant mass is identified. The axillae are unremarkable. IMPRESSION: No mammographic features suspicious for malignancy are identified. ACR BI-RADS Category 2: Benign findings. Result letter will be mailed to the patient. Note: At least 10% of breast cancer is not imaged by mammography. Dictated by: Dictated on workstation # [id number]
== END ==
LOC: RAD 13:40
PROVIDERS: ATTEND Family Medicine
DX: Z12.31 Encounter for screening mammogram for malignant neoplasm of breast (principal)
CPT/HCPCS: 77063; 77067

== ENCOUNTER 2021-05-23 12:23 | Outpatient (CLI) | payer OTHER ==
[2021-05-23 12:35] VITALS: BP 115/85
[2021-05-23] MEDS ORDERED: NS IV 1000 ML 1,000 ML IV ONE (12:45)
[2021-05-23 13:19] LABS: HEMOGLOBIN 11.6 g/dL (11.5-16.0); MONOCYTES % (AUTO) 6 % (0-12)
[2021-05-23 13:20] LABS: BASOPHILS % (AUTO) 0 % (0-10); EOSINOPHILS % (AUTO) 0 % (0-10); HEMATOCRIT 37 % (35-52); LYMPHOCYTES # (AUTO) 1.2 10^3/uL (1.0-4.0); LYMPHOCYTES % (AUTO) 30 % (12-44); MEAN CORPUSCULAR HEMOGLOBIN 19 pg (25-34); MEAN CORPUSCULAR HGB CONC 31 g/dL (32-36); MEAN CORPUSCULAR VOLUME 60 fL (80-99); MONOCYTES # (AUTO) 0.2 10^3/uL (0.0-1.0); NEUTROPHILS # (AUTO) 2.6 10^3/uL (1.8-7.8); NEUTROPHILS % (AUTO) 64 % (42-75); PLATELET COUNT 135 10^3/uL (130-400); WHITE BLOOD COUNT 4.1 10^3/uL (4.3-11.0)
[2021-05-23 13:42] LABS: ALBUMIN 3.4 GM/DL (3.2-4.5); BILIRUBIN,TOTAL 0.6 MG/DL (0.1-1.0); CALCIUM 7.7 MG/DL (8.5-10.1); CREATININE SERUM 0.69 MG/DL (0.60-1.30); POTASSIUM 3.3 MMOL/L (3.6-5.0); TOTAL PROTEIN 6.1 GM/DL (6.4-8.2)
== END 2021-05-23 14:10 | disposition home or self-care (01) ==
LOC: SDC 12:23
PROVIDERS: ATTEND Family Medicine
DX: U07.1 COVID-19 (principal); E86.0 Dehydration
CPT/HCPCS: 36415; 80053; 85025; 96360

== ENCOUNTER → 2021-09-12 | Outpatient (CLI) | payer OTHER ==
[~2021-09-12] MED LIST changes: -DCS100C PO; +DOCU-239 PO
--- NOTE | 2021-09-12 16:30 | Diagnostic Imaging Report ---
INDICATION: Left knee pain. TECHNIQUE: AP, oblique, and lateral views of the left knee are obtained. FINDINGS: No fracture or acute bony abnormality is seen. Joint spaces are unremarkable. There is no overt joint effusion. IMPRESSION: Negative left knee. Dictated by: Dictated on workstation # [id number]
== END ==
LOC: RAD 15:33
PROVIDERS: ATTEND Family Medicine
DX: M25.562 Pain in left knee (principal)
CPT/HCPCS: 73562

== ENCOUNTER 2021-12-03 20:37 | Emergency (ER) | payer OTHER ==
[~2021-12-03] VITALS: Ht 170 cm; Wt 84.0 kg
[2021-12-03 20:53] VITALS: BP 134/88
--- NOTE | 2021-12-03 21:20 | ED EENT ---
History of Present Illness General Chief Complaint: Eye Problems Stated Complaint: FLASHES OF LIGHT R EYE Source: patient, spouse Exam Limitations: no limitations History of Present Illness Date Seen by Provider: Dec 03, 2021 Time Seen by Provider: 21:04 Initial Comments Patient to ER by private conveyance with chief complaint of an hour ago she is was at home not doing anything particular and started having some flashes of light in her peripheral lateral and medial vision of her right eye. When it did not go away she decided to come in. She is to follow-up with Dr. Solo for her optometry needs and he warned her about coming to the ER for flashes of light and possibility of a retinal detachment. She is had no trauma. She denies a history of hypertension, peripheral arterial disease, coronary disease, hyperlipidemia, diabetes or previous eye problems outside of needing corrective lenses. She is wearing contacts. She is not having any fevers chills nausea vomiting diarrhea. Allergies and Home Medications Allergies Coded Allergies: ibuprofen (Verified Allergy, Severe, Anaphylaxis, pt takes Naproxen at home, 10/30/20) "I stop breathing" Patient Home Medication List Home Medication List Reviewed: Yes Cetirizine HCl (Zyrtec) 10 Mg Tablet, 10 MG PO DAILY, (Reported) Entered as Reported by: STERLING RENAE on 10/23/20 1317 Docusate Sodium (Dok) 100 Mg Capsule, 100 MG PO BID PRN for CONSTIPATION-1ST LINE Prescribed by: EMERALD REDDY on 10/30/20 0708 Hydrocodone Bit/Acetaminophen (HYDROcodone/APAP 7.5/325 TAB) 1 Ea Tablet, 2 EA PO Q6H PRN for Pain-See Instructions Prescribed by: EMERALD REDDY on 10/30/20 0708 Naproxen (Naproxen) 250 Mg Tablet, 500 MG PO BID Prescribed by: EMERALD REDDY on 10/30/20 0708 Simethicone (Simethicone) 80 Mg Tab.chew, 40 MG PO TID PRN for INDIGESTION 2ND LINE Prescribed by: EMERALD REDDY on 10/30/20 0708 Review of Systems Review of Systems Constitutional: No chills, No diaphoresis Eyes: See HPI; Denies Blindness, Denies Blurred Vision, Denies Inflammation, Denies Pain, Denies Photophobia, Denies Vision Changes; Contact Lenses Ears: Denies Dizziness, Denies Pain Nose: denies clots, denies congestion Mouth: denies clots, denies pain Throat: denies pain, denies swelling Respiratory: No cough, No short of breath Cardiovascular: No chest pain, No palpitations Gastrointestinal: No abdominal pain, No nausea, No vomiting : No Musculoskeletal: No back pain, No joint pain Skin: No pruritus, No rash Neurological: Denies Headache, Denies Numbness, Denies Paresthesia All Other Systems Reviewed Negative Unless Noted: Yes Past Bdukcis-Wleqyi-Flpena Hx Patient Social History Tobacco Use?: No Use of E-Cig and/or Vaping dev: No Substance use?: No Immunizations Up To Date PED Vaccines UTD: No Seasonal Allergies Seasonal Allergies: Yes Past Medical History Surgeries: Yes (knee scope, D&C, ) Tonsillectomy Respiratory: Yes Asthma, Sleep Apnea Currently Using CPAP: Yes Currently Using BIPAP: No Cardiac: No Neurological: No Sexually Transmitted Disease: No Genitourinary: No Gastrointestinal: No Musculoskeletal: No Endocrine: No HEENT: No Cancer: No Psychosocial: No Integumentary: No Blood Disorders: Yes (Thalassemia minor) Adverse Reaction/Blood Tranf: No Family Medical History Unobtainable family history due to adoption Physical Exam Height, Weight, BMI Height: '" Weight: lbs. oz. 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 He would recommend a good thorough exam tomorrow in the clinic and is happy to follow-up with her. If she is asymptomatic now he would let her go home with no further work-up. Departure Impression Primary Impression: Photopsia of right eye Disposition: 01 HOME, SELF-CARE Condition: Stable Departure-Patient Inst. Decision time for Depature: 21:24 Referrals: DAVE DAVEY OD, JACQUELINE S DO (PCP/Family) Primary Care Physician Patient Instructions: Detached Retina Add. Discharge Instructions: Optometry suspects that you may be having an atypical migraine with ophthalmologic features versus less likely a retinal detachment. They would like you to be seen tomorrow by optometry for more in-depth examinations of your eye. You are welcome to follow-up with Dr. Davey by calling first thing for an appointment and they will work you in soon as possible tomorrow. Alternatively you may follow-up with your own digital advertising specialist. If you have blindness or worsening symptoms then return to the ER for reexamination. All discharge instructions reviewed with patient and/or family. Voiced understanding. Work/School Note: Work Release Form Date Seen in the Emergency Department: Dec 03, 2021 Return to Work: Dec 05, 2021 Restrictions: No Restrictions Copy Copies To 1: DAVE DAVEY OD, TITUS J Dec 03, 2021 21:20
== END 2021-12-03 21:49 | disposition home or self-care (01) ==
LOC: EDUNIT# 20:37 → ER 20:41
DX: H53.19 Other subjective visual disturbances (principal); J45.909 Unspecified asthma, uncomplicated; G47.30 Sleep apnea, unspecified
CPT/HCPCS: 99282

== ENCOUNTER → 2022-12-18 | Outpatient (CLI) | payer OTHER ==
--- NOTE | 2022-12-20 09:41 | Diagnostic Imaging Report ---
3D bilateral screening mammogram with computer-assisted detection. This study was compared to the prior exams of 01/02/2021 and 06/07/2019. There are no current complaints. The fibroglandular tissue in both breasts is heterogeneously dense. This does limit the sensitivity of this exam. As on the previous study, there are numerous calcifications scattered throughout both breasts. The calcifications do not appear to have changed significantly since the prior study. There is no primary or secondary sign of malignancy noted. IMPRESSION: 1. There is no evidence of malignancy. 2. The patient should have her annual bilateral screening mammogram on schedule in December of 2023. ACR category 1. ACR BI-RADS Category 1: Negative. Result letter will be mailed to the patient. Note: At least 10% of breast cancer is not imaged by mammography. Dictated by: Dictated on workstation # [id number]
== END ==
LOC: RAD 15:15
PROVIDERS: ATTEND Family Medicine
DX: Z12.31 Encounter for screening mammogram for malignant neoplasm of breast (principal)
CPT/HCPCS: 77063; 77067